=== PATIENT | male | born 1975 | race Caucasian/White ===

== ENCOUNTER 2020-05-19 10:39 | Emergency (ER) | payer OTHER ==
[~2020-05-19] VITALS: Ht 180.3 cm; Wt 72.6 kg
[~2020-05-19 10:39] MED LIST: BACTRIM DS TAB1 EACH PO; KEFLEX500 MG PO; NOHOMEMEDICATIONS; PERCOCET; TOBREX5 ML OPHTHALMIC; TRAMADOL 50 MG50 MG PO
[2020-05-19 10:40] VITALS: BP 167/114
[2020-05-19] MEDS ORDERED: PENICILLIN V P500 MG PO (11:08)
[2020-05-19] MEDS ORDERED: NORCO 5-325 TA1 EAC2 PO (11:08)
== END 2020-05-19 11:15 | disposition home or self-care (01) ==
LOC: ER 10:39
DX: K04.7 Periapical abscess without sinus (principal); R51.9 Headache, unspecified; K03.81 Cracked tooth; Z87.442 Personal history of urinary calculi; Z88.5 Allergy status to narcotic agent